=== PATIENT | male | born 1970 | race Caucasian/White ===

== ENCOUNTER 2018-07-21 15:18 | Outpatient (CLI) | payer OTHER, BC ==
--- NOTE | 2018-07-22 09:48 | XRAY Report ---
Reason: WRIST JOINT PAIN, LEFT, OTHER SPRAIN OF LEFT THUMB Procedure Date: 07/21/2018 Accession Number: [id number] / [id number] Procedure: XR - Wrist 4 View LT CPT Code: FULL RESULT: EXAM: LEFT WRIST RADIOGRAPHY EXAM DATE: 07/21/2018 03:52 PM. CLINICAL HISTORY: WRIST JOINT PAIN, LEFT, OTHER SPRAIN OF LEFT THUMB. COMPARISON: None. TECHNIQUE: 4 views. FINDINGS: Bones: No fractures or bone lesions. Joints: Unremarkable. Soft Tissues: Unremarkable. IMPRESSION: 1. No acute osseous abnormality. If there is snuff box tenderness, or clinical suspicion of radiographically occult scaphoid fracture, immobilization with repeat radiograph in 7-10 days, or alternatively MR, is recommended. [facility]IA
== END 2018-07-21 15:19 | disposition home or self-care (01) ==
LOC: DI 15:18
PROVIDERS: ATTEND Physician Assistant Medical
DX: M25.532 Pain in left wrist (principal); S63.682A Other sprain of left thumb, initial encounter

== ENCOUNTER 2018-09-30 18:54 | Emergency (ER) | payer OTHER, BC ==
--- NOTE | 2018-09-30 23:24 | ED Physician Documentation ---
PD HPI LOWER EXT INJURY - Stated complaint Stated Complaint: L LEG PX - Chief complaint Chief Complaint: Trauma Ext - History obtained from History obtained from: Patient - History of Present Illness PD HPI LOW EXT INJURY LOCATION: Left, Calf Type of injury: Twist Where injury occurred: Work (he twisted while walking/turning at work 2 weeks ago and had pain at medial upper calf. This continued hurting with walking and was slowly improving. Then at work today, had an abrupt worsening of the pain in same area along with feeling of pop/tear with turning movement while walking. Worse pain and unable to walk/stand without significant pain.) Timing - onset: How many weeks ago (2 weeks ago initial injury with worsening of it today) Timing - details: Abrupt onset, Still present Worsened by: Moving (dorsiflexion of the foot causes pain in the upper calf. Plantar flexion against resistance is the most pain.), Palpating Associated symptoms: Swelling (feels swelling of upper medial calf on left. Faint mild redness in the area.). No: Weakness, Numbness Similar symptoms before: Has not had sx before Recently seen: Not recently seen Review of Systems Constitutional: denies: Fever, Myalgias Nose: denies: Rhinorrhea / runny nose, Congestion Throat: denies: Sore throat Respiratory: denies: Cough Skin: denies: Rash, Lesions Musculoskeletal: reports: Extremity pain (left upper medial calf.) PD PAST MEDICAL HISTORY - Past Medical History Past Medical History: Yes Cardiovascular: High cholesterol Musculoskeletal: None - Past Surgical History Past Surgical History: Yes General: Appendectomy - Present Medications Home Medications: Ambulatory Orders Medication Instructions Recorded Confirmed Morphine Sulfate [Morphine Sulfate 30 mg PO TID 05/05/14 09/30/18 ER] - Allergies Allergies/Adverse Reactions: Allergies Allergy/AdvReac Type Severity Reaction Status Date / Time No Known Drug Allergies Allergy Verified 09/30/18 19:20 - Social History Does the pt smoke?: Yes Smoking Status: Current every day smoker Does the pt drink ETOH?: No Does the pt have substance abuse?: No - Immunizations Immunizations are current?: Yes - POLST Patient has POLST: No PD ED PE NORMAL - Vitals Vital signs reviewed: Yes - General General: Alert and oriented X 3, No acute distress (comfortable sitting, and arrived with his own crutches. Painful for weight bearing. ), Well developed/nourished - Derm Derm: Normal color, Warm and dry, No rash - Extremities Extremities: Other (Left medial upper calf with tenderness. Mild local swelling. No obvious deformity felt in structure of the calf. Pain with plantarflexion against resistance. No pain with knee flexion. No pain in lower calf. No foot swelling. Normal color and cap refill. ) - Neuro Neuro: No motor deficit, No sensory deficit Results - Vitals Vitals: Vital Signs - 24 hr 09/30/18 09/30/18 09/30/18 19:16 21:53 22:56 Temperature 36.8 C 36.5 C Heart Rate 85 83 70 Respiratory 16 16 16 Rate Blood Pressure 136/73 H 134/72 H 128/72 O2 Saturation 97 98 99 10/01/18 00:03 Temperature Heart Rate 87 Respiratory 14 Rate Blood Pressure 139/90 H O2 Saturation 96 Oxygen O2 Source Room air PD MEDICAL DECISION MAKING - ED course Complexity details: considered differential (exam and history c/w partial gastroc muscle tear. ), d/w patient Departure - Departure Disposition: 01 Home, Self Care Clinical Impression: Gastrocnemius muscle rupture Qualifiers: Encounter type: initial encounter Laterality: left Qualified Code(s): S86.112A - Strain of other muscle(s) and tendon(s) of posterior muscle group at lower leg level, left leg, initial encounter Condition: Stable Record reviewed to determine appropriate education?: Yes Instructions: ED Strain Muscle Ext Follow-Up: Lisy Chen PA-C [Primary Care Provider] - [facility] [Provider Group] Comments: Use the walking cast boot when up and around to reduce ankle motion and therefore less motion of the calf muscle which has a partial tear. Use the c rutches as needed for no or partial weightbearing. Ibuprofen or naproxen twice daily. Add Tylenol if needed for pain. Follow-up with orthopedics in about a week, call for an appointment. This may take 2-3 weeks to heal up well. Forms: Activity restrictions Discharge Date/Time: 10/01/18 00:04
[2018-09-30] MEDS ORDERED: IBUPROFEN 600 MG TABLET PO STA (23:50)
[2018-10-01 00:04] VITALS: BP 139/90
== END 2018-10-01 00:04 | disposition home or self-care (01) ==
LOC: ED 18:54
DX: S86.112A Strain of other muscle(s) and tendon(s) of posterior muscle group at lower leg level, left leg, initial encounter (principal); X50.1XXA Overexertion from prolonged static or awkward postures, initial encounter; Y93.01 Activity, walking, marching and hiking; Y99.0 Civilian activity done for income or pay; E78.00 Pure hypercholesterolemia, unspecified; F17.200 Nicotine dependence, unspecified, uncomplicated
CPT/HCPCS: 99283; A9270

== ENCOUNTER 2019-01-21 08:34 | Outpatient (CLI) | payer BC ==
[2019-01-21 10:19] LABS: BASOPHILS % (AUTO) 0.3 %; EOSINOPHILS # (AUTO) 0.1 10^3/uL (0.0-0.7); HGB - HEMOGLOBIN 15.5 g/dL (14.0-18.0); LYMPHOCYTES # (AUTO) 3.9 10^3/uL (1.5-3.5); MEAN CORPUSCULAR HEMOGLOBIN 29.6 pg (27.0-31.0); MEAN CORPUSCULAR HGB CONC 32.8 g/dL (32.0-36.0); MEAN CORPUSCULAR VOLUME 90.2 fL (80.0-94.0); MEAN PLATELET VOLUME 10.2 fL (7.4-11.4); MONOCYTES # (AUTO) 0.9 10^3/uL (0.0-1.0); NEUTROPHILS # (AUTO) 9.5 10^3/uL (1.5-6.6); NEUTROPHILS % (AUTO) 65.4 %; PLT - PLATELET COUNT 177 10^3/uL (130-450); RED BLOOD COUNT 5.23 10^6/uL (4.70-6.10); RED CELL DISTRIBUTION WIDTH 14.7 % (12.0-15.0); WHITE BLOOD COUNT 14.4 x10^3/uL (4.8-10.8)
[2019-01-21 10:35] LABS: ALBUMIN 4.5 g/dL (3.2-5.5); ALBUMIN/GLOBULIN RATIO 1.6 (1.0-2.2); BILIRUBIN,TOTAL 0.7 mg/dL (0.2-1.0); CALCIUM 9.4 mg/dL (8.5-10.3); CREATININE 0.9 mg/dL (0.6-1.2); TOTAL PROTEIN 7.3 g/dL (6.7-8.2)
== END 2019-01-21 08:35 | disposition home or self-care (01) ==
LOC: LAB.S 08:34
PROVIDERS: ATTEND Physician Assistant Medical
DX: Z51.81 Encounter for therapeutic drug level monitoring (principal); Z79.01 Long term (current) use of anticoagulants
CPT/HCPCS: 36415; 80053; 85025